=== PATIENT | female | born 1990 | race Caucasian/White ===

== ENCOUNTER 2020-01-16 13:03 | Outpatient (CLI) | payer BC ==
--- NOTE | 2020-01-18 13:19 | EEG ---
DATE OF SERVICE: DESCRIPTION OF THE RECORD: The waking background is a medium amplitude 9 hertz alpha frequency. The patient remained awake throughout the study. Hyperventilation and photic stimulation were unremarkable. No epileptiform features were present. IMPRESSION: This is a normal awake EEG. Job ID: [id number]
== END 2020-01-16 13:04 | disposition home or self-care (01) ==
LOC: EEG 13:03
PROVIDERS: ATTEND Anesthesiology
DX: F41.0 Panic disorder [episodic paroxysmal anxiety] (principal); F44.81 Dissociative identity disorder
CPT/HCPCS: 95816